=== PATIENT | male | born 1930 | race Caucasian/White ===

== ENCOUNTER 2019-02-28 12:59 | Emergency (ER) | payer MEDICARE, OTHER ==
[2019-02-28] MEDS ORDERED: ATIVAN1 MG PO (13:53)
[2019-02-28 13:58] VITALS: BP 168/80
== END 2019-02-28 14:27 | disposition home or self-care (01) ==
LOC: ED 12:59
DX: F41.9 Anxiety disorder, unspecified (principal); I10 Essential (primary) hypertension; F03.90 Unspecified dementia, unspecified severity, without behavioral disturbance, psychotic disturbance, mood disturbance, and anxiety; Z86.73 Personal history of transient ischemic attack (TIA), and cerebral infarction without residual deficits

== ENCOUNTER 2019-08-17 | Emergency (ER) | payer MEDICARE, OTHER ==
[~2019-08-17] MED LIST: ATIVAN1 MG PO
[2019-08-17 12:39] LABS: HEMATOCRIT 39.4 % (39.0-50.0); HEMOGLOBIN 12.7 g/dl (14.0-18.0); IMMATURE GRANULOCYTES 0.3 % (0.0-5.0); MEAN CELL VOLUME 88.1 fL CALC (80.0-100.0); MEAN CORPUSCULAR HGB 28.4 pG CALC (26.0-32.0); MEAN CORPUSCULAR HGB CONC 32.2 g/L CALC (32.0-36.0); NEUT# 3.85 thou/uL (1.82-7.42); RED BLOOD COUNT 4.47 mill/uL (4.70-6.10); RED CELL DISTRI WIDTH 12.5 % (11.5-15.5)
[2019-08-17 12:46] LABS: ALBUMIN 4.2 g/dL (3.2-5.0); ALKALINE PHOSPHATASE 77 u/l (38-126); ANION GAP 12 (6-22 (CALC)); BILIRUBIN, TOTAL 0.7 mg/dL (0.0-1.4); BUN 15 mg/dL (8-23); BUN/CREATININE RATIO 14 (12-20 (CALC)); CARBON DIOXIDE 30 mmol/l (22-30); CHLORIDE 101 mmol/l (95-108); CREATININE 1.1 mg/dL (0.7-1.3); GFR > 60 ML/MIN (>=60 (CALC)); GFR FOR AFR.AMER. > 60 ML/MIN (>=60 (CALC)); POTASSIUM 3.7 mmol/l (3.5-5.1); SGOT/AST 19 u/l (19-48); SODIUM 139 mmol/l (137-146); TOTAL PROTEIN 7.8 g/dL (6.3-8.2)
[2019-08-17 12:50] LABS: INTERNATIONAL NORMALIZED RATIO 1.1 RATIO (0.7-1.3); PROTHROMBIN TIME 11.5 SECONDS (9.0-12.5)
[2019-08-17] MEDS ORDERED: BACTROBAN TOP (13:26)
== END 2019-08-17 14:37 | disposition home or self-care (01) ==
DX: R23.0 Cyanosis (principal); T14.8XXA Other injury of unspecified body region, initial encounter; I10 Essential (primary) hypertension; F03.90 Unspecified dementia, unspecified severity, without behavioral disturbance, psychotic disturbance, mood disturbance, and anxiety; F41.9 Anxiety disorder, unspecified; I48.91 Unspecified atrial fibrillation; X58.XXXA Exposure to other specified factors, initial encounter; Z86.73 Personal history of transient ischemic attack (TIA), and cerebral infarction without residual deficits

== ENCOUNTER 2021-03-09 08:06 | Inpatient (IN) | payer MEDICARE, OTHER ==
[~2021-03-09] VITALS: Ht 274.3 cm; Wt 86.0 kg
[2021-03-09] VITALS (8 sets, daily range): BP systolic 111–164; BP diastolic 71–80
[~2021-03-09 08:06] MED LIST changes: +BACTROBAN TOP
--- NOTE | 2021-03-09 08:06 | NUR ---
PT TO ROOM VIA EMS
--- NOTE | 2021-03-09 08:44 | NUR ---
[facility]
[2021-03-09 09:03] LABS: HEMATOCRIT 43.5 % (39.0-50.0); HEMOGLOBIN 13.9 g/dl (14.0-18.0); IMMATURE GRANULOCYTES 0.4 % (0.0-5.0); MEAN CELL VOLUME 87.5 fL CALC (80.0-100.0); NEUT# 1.42 thou/uL (1.82-7.42); RED BLOOD COUNT 4.97 mill/uL (4.70-6.10)
[2021-03-09 09:11] LABS: INTERNATIONAL NORMALIZED RATIO 1.1 RATIO (0.7-1.3); PROTHROMBIN TIME 11.6 SECONDS (9.0-12.5)
--- NOTE | 2021-03-09 09:15 | NUR ---
ASSISTED PATIENT UP TO BSC AND THEN BACK TO BED
[2021-03-09 10:02] LABS: GFR > 60 ML/MIN (>=60 (CALC)); GFR FOR AFR.AMER. > 60 ML/MIN (>=60 (CALC))
[2021-03-09 10:21] LABS: ALBUMIN 3.6 g/dL (3.2-5.0); BILIRUBIN, TOTAL 0.8 mg/dL (0.0-1.4); BUN 13 mg/dL (8-23); BUN/CREATININE RATIO 13 (12-20 (CALC)); CHLORIDE 101 mmol/l (95-108); GFR > 60 ML/MIN (>=60 (CALC)); GFR FOR AFR.AMER. > 60 ML/MIN (>=60 (CALC)); MAGNESIUM 1.7 mg/dL (1.6-2.3); POTASSIUM 3.8 mmol/l (3.5-5.1); SODIUM 133 mmol/l (137-146); TOTAL PROTEIN 7.2 g/dL (6.3-8.2)
--- NOTE | 2021-03-09 10:21 | NUR ---
PATIENT RESTING ON STRETCHER WITH EYES CLOSED. NO DISTRESS NOTED
[2021-03-09 10:23] LABS: ALKALINE PHOSPHATASE 120 u/l (38-126); ANION GAP 14 (6-22 (CALC)); CARBON DIOXIDE 22 mmol/l (22-30); SGOT/AST 45 u/l (19-48)
[2021-03-09 10:25] LABS: C-REACTIVE PROTEIN 4.1 mg/dL (0-0.9)
[2021-03-09 12:12] LABS: URINE BILIRUBIN - DIPSTICK NEGATIVE (NEGATIVE); URINE BLOOD DIPSTICK NEGATIVE (NEGATIVE); URINE COLOR YELLOW; URINE GLUCOSE - DIPSTICK NEGATIVE (NEGATIVE); URINE KETONE 15 mg/dL (NEGATIVE); URINE LEUK ESTERASE NEGATIVE (NEGATIVE); URINE PH 6.5 (4.5-8.0); URINE PROTEIN - DIPSTICK 30 mg/dL (NEG-TRACE); URINE SPECIFIC GRAVITY 1.015
[2021-03-09 12:15] LABS: URINE MUCUS MODERATE hpf (NONE-FEW); URINE NITRITE - DIPSTICK NEGATIVE (Negative)
--- NOTE | 2021-03-09 12:30 | NUR ---
PATIENT RESTING ON STRETCHER AWARE OF PENDING ADMIT. ADMISISON ASSESSMENT COMPLETED. PT IS ALERT AND ORIENTED X3. HOWEVER HAS BRIEF EPISODES OF CONFUSION. IV PATENT X1. CARDIZEM GTT INFUSING. AFIB ON MONITOR. WILL OCNTINUE TO MONITOR CLOSELY.
[2021-03-09] MEDS ORDERED: ATENOLOL25 MG PO (14:17)
[2021-03-09] MEDS ORDERED: LISINOPRIL10 MG PO (14:17)
[2021-03-09] MEDS ORDERED: REMERON7.5 MG PO (14:18)
[2021-03-09] MEDS ORDERED: ELIQUIS5 MG PO (14:18)
[2021-03-09] MEDS ORDERED: AMLODIPINE BESYL5 MG PO (14:18)
[2021-03-09] MEDS ORDERED: LASIX 40 MG TAB40 MG (14:19)
[2021-03-09] MEDS ORDERED: DONEPEZIL HCL5 M1 PO (14:19)
--- NOTE | 2021-03-09 14:34 | NUR ---
PATENT RESTING ON STRETCHER AT THIS TIME. NO COMPLAINTS VOICED CARDIZEM INFUSING.
--- NOTE | 2021-03-09 16:00 | NUR ---
PATIENT RESITNG ON STRETCHER AT THIS TIME. RESP ARE EVEN AND UNLABORED. NO DISTRESS NOTED. CALL LIGHT IN REACH. WILL CO NTINUE TO MONITOR.
--- NOTE | 2021-03-09 17:30 | NUR ---
PATIENT SET UP FOR PM MEAL AT THIS TIME.
--- NOTE | 2021-03-09 18:00 | NUR ---
PATIENT RESINT ON STRETCHER AT THIS TIME. NO DISTRESS NOTED CALL LIGHT IN REACH. WILL CONTINIUE TO MONITORL.
[2021-03-10] VITALS (22 sets, daily range): BP systolic 100–188; BP diastolic 57–82
--- NOTE | 2021-03-10 00:10 | NUR ---
rec'd to icu6 per stretcher from er as icu hold. transferred x2 to bed. bed weight obtained. telemetry monitor shows a fib hr 126. cardizem infusing @ 10mg hr per #18 lac. oriented to room. bed alarm activated.
--- NOTE | 2021-03-10 00:43 | NUR ---
REPORT GIVEN TO MITCHELL
--- NOTE | 2021-03-10 00:59 | NUR ---
SPOKE WITH PATIENT'S EARLIER IN THIS SHIFT. UPDSATED ON PT STATUS. IS CURRENTLY AN INPT IN THIS HOSPITAL. PT HAS DEMENTIA. PER PT FREQUENTLY FALLS AT NIGHT AND CONSTANTLY GETS UP AT NIGHT. PT HAS BEEN REMINDED TO STAY IN BED FREQUENTLY. PT ASSISTED TO BSC -URNE ; NO BM. PT ATTEMPTED TO GET OOB SVERAL TIMES. PT VERBALLY REMINDED TO STAY IN BED AND PHYSICALLY ASSISTED TO POSITION OF COMFORT WHILE IN BED. WARM BLANKETS PROVIDED. PT BEING TRANSPORTED TO ICU 6 BY CHARGE NURSE. CHARGE NURSE, CLIFFORD, PREVIOUSLY NOTIFIED OF 'S REPORT THAT PT WONDERS AND FALLS AT NIGHT.
--- NOTE | 2021-03-10 02:00 | NUR ---
awake. has attempted to get oob several times. requires MUCH observation. bed alarm cont.
--- NOTE | 2021-03-10 03:45 | NUR ---
bed alarm sounding. pt on side of bed "looking for my micah." pt referring to his . instructed pt his was on the med surg floor. assisted into bed. bed alarm reactivated.
--- NOTE | 2021-03-10 05:00 | NUR ---
lab here. blood drawn.
[2021-03-10 05:44] LABS: HEMATOCRIT 42.5 % (39.0-50.0); MEAN CORPUSCULAR HGB CONC 32.9 g/dL CAL (32.0-36.0); RED CELL DISTRI WIDTH 12.9 % (11.5-15.5)
--- NOTE | 2021-03-10 05:50 | NUR ---
eyes closed. no distress. cardiac care unit nurse shows a fib.
[2021-03-10 06:01] LABS: ANION GAP 11 (6-22 (CALC)); BUN 11 mg/dL (8-23); BUN/CREATININE RATIO 13 (12-20 (CALC)); CALCULATED LDLCHOLESTEROL 34 mg/dL (62-129 (CALC)); CARBON DIOXIDE 23 mmol/l (22-30); CHLORIDE 103 mmol/l (95-108); CREATININE 0.9 mg/dL (0.7-1.3); GFR > 60 ML/MIN (>=60 (CALC)); GFR FOR AFR.AMER. > 60 ML/MIN (>=60 (CALC)); HDL CHOLESTEROL 23 mg/dL (>=40); MAGNESIUM 1.8 mg/dL (1.6-2.3); POTASSIUM 3.7 mmol/l (3.5-5.1); SODIUM 133 mmol/l (137-146); TOTAL CHOLESTEROL 70 mg/dl (0-199); TOTAL TRIGLYCERIDES 66 mg/dl (30-149); VLDL CHOLESTROL 13 mg/dl (0-38 (CALC))
--- NOTE | 2021-03-10 06:05 | NUR ---
bed alarm sounding. voided per bsc then assisted to bed.
--- NOTE | 2021-03-10 06:44 | NUR ---
NO ONLINE ACTIVIST INTERVENTION NEEDED AT THIS TIME. PT RESTING COMFORTABLY, FLAT IN BED. ON RA. VSS. NAD. ONLINE ACTIVIST TO MONITOR.
--- NOTE | 2021-03-10 07:15 | NUR ---
pt awake in bed; no apparent distress noted; pt blowning whistle for staff attention; assessment completed at this time; pt alert x1; confusion noted; denies pain; no n/v noted; resp even and unlabored; lungs clear/ faint wheeze anterior; skin color wnl; loans consultant cough noted; hr irreg; strong pulses; no edema noted; afib on monitor; abd soft with bs present; no bm noted per abstract writer; no urine to inspect at this time; #18 patent to lac with cardizem gtt infusing at 10mg/hr; no redness or edema noted at site; abrasion noted to left knee; plan of care/ meds explained; bed alarm set for pt safety; call light explained and within reach; will continue to monitor
--- NOTE | 2021-03-10 08:00 | NUR ---
repositioned in bed for breakfast; call light within reach; will continue to monitor
--- NOTE | 2021-03-10 08:50 | NUR ---
#20 started to rfa x1 attempt; pt assisted to bsc then recliner; call light within reach; increased visual observation for pt safety; afib on monitor; will continue to monitor
--- NOTE | 2021-03-10 09:30 | NUR ---
Dr Yepez present at bedside to assess pt and discuss plan of care
--- NOTE | 2021-03-10 10:10 | NUR ---
assisted to bsc for loose brwon bm; stool mixed with urine; back to recliner; will continue to monitor
--- NOTE | 2021-03-10 12:00 | NUR ---
awake and more confused; pt assisted to bsc; no urine or stool noted; iv intact and patent; cardizem gtt titrated to 8mg/hr; afib on monitor; call placed to spouse at 290; pt able to speak to spouse; will continue to monitor
--- NOTE | 2021-03-10 13:50 | NUR ---
pt out of recliner; attempting to use bsc "to go upstairs" reoriented; back to recliner; will continue to monitor
--- NOTE | 2021-03-10 14:20 | NUR ---
pt very confused; noted out of recliner per self; pt with very unsteady weak gait; assisted back to bed for safety reasons; bed alarm set; call light within reach; will continue to monitor
--- NOTE | 2021-03-10 16:24 | NUR ---
resting in bed with eyes closed; no apparent distress noted; afib on monitor; bed alarm for pt safety; call light within reach; will continue to monitor
--- NOTE | 2021-03-10 18:00 | NUR ---
awake in bed; assisted to bsc then recliner; no apparent distress noted; afib on monitor; ra; iv patent with cardizem gtt infusing at 8mg/hr; call light within reach
--- NOTE | 2021-03-10 18:14 | NUR ---
pt moved to ICU bed 8
--- NOTE | 2021-03-10 19:30 | NUR ---
awake. sitting in bedside chair. nad. remains confused. ekg monitor shows a fib hr 114. #20 rfa cardizem infusing @ 8mghr. #18 lac saline lock. assisted to bsc then to bed. fall & air/contact precautions & bed alarm conts. instructed pt was time to sleep.
--- NOTE | 2021-03-10 19:35 | NUR ---
appears to be sleeping.
--- NOTE | 2021-03-10 21:05 | NUR ---
awake. attempting to get oob. instructed to stay in bed & pt complied. bedtime meds & soda given. instructed pt was time to sleep.
--- NOTE | 2021-03-10 21:15 | NUR ---
appears to be sleeping.
--- NOTE | 2021-03-10 22:30 | NUR ---
attempting to get oob by self. assisted to bsc then to bed. jatinder well. update given to pt about who is on medsurg floor. bed alarm reactivated.
--- NOTE | 2021-03-10 22:35 | NUR ---
pt appears to be sleeping.
[2021-03-11] VITALS (21 sets, daily range): BP systolic 108–151; BP diastolic 63–88
--- NOTE | 2021-03-11 00:05 | NUR ---
awake. up to bsc then back to bed. jatinder well.
--- NOTE | 2021-03-11 02:00 | NUR ---
resting quietly. resps even & unlabored. no apparent distress.
--- NOTE | 2021-03-11 04:30 | NUR ---
lab here. blood drawn.
--- NOTE | 2021-03-11 05:22 | NUR ---
xray here. pcxr obtained.
[2021-03-11 05:44] LABS: HEMATOCRIT 41.8 % (39.0-50.0); HEMOGLOBIN 13.7 g/dl (14.0-18.0); IMMATURE GRANULOCYTES 0.4 % (0.0-5.0); MEAN CELL VOLUME 84.3 fL CALC (80.0-100.0); MEAN CORPUSCULAR HGB 27.6 pG CALC (26.0-32.0); MEAN CORPUSCULAR HGB CONC 32.8 g/dL CAL (32.0-36.0); NEUT# 1.14 thou/uL (1.82-7.42); RED BLOOD COUNT 4.96 mill/uL (4.70-6.10); RED CELL DISTRI WIDTH 12.9 % (11.5-15.5)
[2021-03-11 05:59] LABS: ANION GAP 13 (6-22 (CALC)); BUN 13 mg/dL (8-23); BUN/CREATININE RATIO 16 (12-20 (CALC)); C-REACTIVE PROTEIN 5.2 mg/dL (0-0.9); CARBON DIOXIDE 21 mmol/l (22-30); CHLORIDE 104 mmol/l (95-108); CREATININE 0.8 mg/dL (0.7-1.3); GFR > 60 ML/MIN (>=60 (CALC)); GFR FOR AFR.AMER. > 60 ML/MIN (>=60 (CALC)); POTASSIUM 3.2 mmol/l (3.5-5.1); SODIUM 134 mmol/l (137-146)
--- NOTE | 2021-03-11 06:44 | NUR ---
PT IN ON 4 LITER NASAL CANNULA WITH SATS OF 95%.
--- NOTE | 2021-03-11 07:00 | NUR ---
BED ALARM SOUNDING. UPON ENTERING ROOM, PT REQUESTING TO USE BSC. A&O; PT ABLE TO STATE NAME, LOCATION AND YEAR. 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 PT ASSISTED TO BSC, MODERA LOOSE BM, PT VOIDED 100 CC OF URINE IN URINAL. PT ASSISSTED BACK INTO BED. CLEAR/DIMINISHED BREATH SOUNDS UPON AUSCULTATION. AFIB ON SPRAY MIXER WITH A RATE OF 115 BPM; CARDIZEM INFUSING @5MG/ML TO #20G RFA, REMAINS HEALTHY AND PATENT. EMS SITE TO LAC REMAINS. ACTIVE BOWEL SOUNDS X4 QUADRANTS. PT REORIENTED TO ROOM, AND CALL LIGHT; CALL LIGHT LEFT WITHIN REACH . BED ALARM PLACED FOR SAFETY. DISCUSSED POC, REINFORCEMENT NEEDED. ASSESSMENT COMPLETED.
--- NOTE | 2021-03-11 08:09 | NUR ---
PT IS NOW ON RA WITH SATS OF 93%.
--- NOTE | 2021-03-11 10:05 | NUR ---
PT SLEEPING IN RECLINER, AFIB ON MONITOR 96 BPM, CARDIZEM CONTINUES INFUSING @5MG/HR. HR WITH EXERTION 120'S. NO OTHER NEEDS AT THIS TIME. REORIENTED PT TO ROOM. BED ALARM IN PLACE FOR SAFETY. CALL LIGHT WITHIN REACH.
--- NOTE | 2021-03-11 12:15 | NUR ---
PT SLEEPING IN BED. NO DISTRESS NOTED. CARDIZEM GTT CONTINUES AT 5MG/HR, AFIB 110 ON OFFICE CLERK ROUTINE. NO OTHER NEEDS AT THIS TIME. CALL LIGHT WITHIN REACH. BED ALARM IN PLACE FOR SAFETY.
--- NOTE | 2021-03-11 14:15 | NUR ---
PT SLEEPING IN BED. NO DISTRESS. CURRENTLY AFIB WITH A RATE OF 112, CARDIZEM GTT 5MG/HR INFUSING AT THIS TIME. NO OTHER NEEDS IN THIS TIME. CALL LIGHT WITHIN REACH. BED ALARM IN PLACE FOR SAFETY.
--- NOTE | 2021-03-11 16:15 | NUR ---
PT LAYING IN BED. NO DISTRESS. REMAINS ON ROOM AIR 93%. NO OTHER NEEDS AT THIS TIME, CARDIZEM REMAINS UNCHANGED. CALL LIGHT WITHIN REACH. BED ALARM IN PLACE FOR SAFETY.
--- NOTE | 2021-03-11 17:37 | NUR ---
PT SLEEPING IN BED. NO DISTRESS NOTED. AFIB ON MONITOR WITH HR 102. CARDIZEM INFUSING AT 5MG/HR. CALL LIGHT WITHIN REACH. BED ALARM IN PLACE FOR SAFETY.
--- NOTE | 2021-03-11 18:13 | NUR ---
PT SLEEPING IN BED, AWAKENED WHEN THIS DOPING SUPERVISOR ENTERED ROOM. PT DENIES ANY COMPLAINTS AT THIS TIME, REORIENTED PT TO ROOM. HR 117. CARDIZEM REMAINS. NO OTHER NEEDS AT THIS TIME. CALL LIGHT WITHIN REACH. BED LARM IN PLACE FOR SAFETY.
--- NOTE | 2021-03-11 20:00 | NUR ---
has been asleep but is now awake. remains confused. oriented to name & place. engine monitor shows a fib hr 108. ivf infusing per #20 rfa. assisted to bsc then back to bed. jatinder well. fall & air/contact precautions cont. bed alarm on. requires freq observtion.
--- NOTE | 2021-03-11 22:00 | NUR ---
eyes closed. no distress. traffic monitor specialist shows a fib hr 90
--- NOTE | 2021-03-11 23:30 | NUR ---
awake. up to bsc then back to bed.
[2021-03-12] VITALS (19 sets, daily range): BP systolic 107–160; BP diastolic 60–95
--- NOTE | 2021-03-12 02:00 | NUR ---
resting quietly. resps even & unlabored. no apparent distress.
--- NOTE | 2021-03-12 04:00 | NUR ---
eyes closed. no distress.
--- NOTE | 2021-03-12 05:30 | NUR ---
up to bsc then back to bed. jatinder well.
[2021-03-12 06:29] LABS: ANION GAP 15 (6-22 (CALC)); BUN 14 mg/dL (8-23); BUN/CREATININE RATIO 19 (12-20 (CALC)); C-REACTIVE PROTEIN 5.7 mg/dL (0-0.9); CARBON DIOXIDE 20 mmol/l (22-30); CHLORIDE 104 mmol/l (95-108); CREATININE 0.7 mg/dL (0.7-1.3); GFR > 60 ML/MIN (>=60 (CALC)); GFR FOR AFR.AMER. > 60 ML/MIN (>=60 (CALC)); MAGNESIUM 1.9 mg/dL (1.6-2.3); POTASSIUM 3.8 mmol/l (3.5-5.1); SODIUM 135 mmol/l (137-146)
[2021-03-12 06:36] LABS: HEMATOCRIT 45.9 % (39.0-50.0); HEMOGLOBIN 15.3 g/dl (14.0-18.0); IMMATURE GRANULOCYTES 0.5 % (0.0-5.0); MEAN CELL VOLUME 83.8 fL CALC (80.0-100.0); MEAN CORPUSCULAR HGB 27.9 pG CALC (26.0-32.0); MEAN CORPUSCULAR HGB CONC 33.3 g/dL CAL (32.0-36.0); NEUT# 1.22 thou/uL (1.82-7.42); RED BLOOD COUNT 5.48 mill/uL (4.70-6.10); RED CELL DISTRI WIDTH 12.7 % (11.5-15.5)
--- NOTE | 2021-03-12 07:10 | NUR ---
REPORT RECEIVED FROM KURTIS OROPEZA
--- NOTE | 2021-03-12 08:15 | NUR ---
PT RESTING IN SEMI FOWLERS POSITION,A&O TO SELF WITH FORGETFULNESS NOTED;HX DEMENTIA;VS OBTAINED AND ASSESSMENT COMPLETED;PT DENIES ANY CURRENT PAIN OR DISCOMFORTS,PAIN SCALE AND REPORTING EDUCATED;RESPIRATIONS EVEN AND UNLABORED ON RA,CLEAR LUNG SOUNDS;ABDOMEN SOFT ON PALPATION AND ACTIVE IN ALL 4 QUADRANTS;WEAK PEDAL PULSES;SKIN INTACT;CARDIAC MONITORING IN PLACE;#20G TO RFA INFUSING CARDIZEM @ 5CC/HR;PT REMAINS IN AIR/CONTACT PRECAUTIONS DUE TO COVID19 DX;PT DENIES ANY ADDITIONAL NEEDS AND IS ENCOURAGED TO CALL FOR ASSISTANCE IF NEEDED;FALL PRECAUTIONS IN PLACE WITH BED IN TH LOWEST POSITION AND CALL LIGHT IN REACH;WILL CONTINUE TO MONITOR
--- NOTE | 2021-03-12 08:40 | NUR ---
AT BEDSIDE DISCUSSING POC.
--- NOTE | 2021-03-12 09:30 | NUR ---
PT MEDICATED WITH PRN ROBITSSIN PER REQUEST,WILL CONTINUE TO MONITOR
--- NOTE | 2021-03-12 10:00 | NUR ---
PT OOB RESTING IN RECLINER;RESPIRATIONS EVEN AND UNLABORED ON RA;PT DENIES ANY CURRENT PAIN OR DISCOMFORTS;CARDIAC MONITORING IN PLACE;#22G TO RFA REMAINS PATENT WITH CARDIZEM INFUSING @ 5CC/HR;PT ENCOURAGED TO CALL FOR ASSISTANCE IF NEEDED;CALL LIGHT IN REACH;WILL CONTINUE TO MONITOR
--- NOTE | 2021-03-12 11:40 | NUR ---
PT RESTING IN RECLINER;RESPIRATIONS REMAIN EVEN AND UNLABORED ON RA;PT DENIES ANY CURRENT PAIN OR NEEDS;CARDIAC MONITORING IN PLACE;PT VOIDED 200CC OF CLEAR/YELLOW URINE;IV SITE PATENT INFUSING WITH EASE;ENCOURAGED TO CALL FOR ASSISTANCE IF NEEDED;CALL LIGHT IN REACH;WILL CONTINUE TO MONITOR
--- NOTE | 2021-03-12 13:50 | NUR ---
PT OOB RESTING IN RECLINER;RESPIRATIONS EVEN AND UNLABORED ON RA;PT DENIES ANY CURRENT PAIN OR DISCOMFORTS;CARDIAC MONITORING IN PLACE;IV SITE PATENT TO RFA INFUSING CARDIZEM PER ORDER;NEW #20G TO STARTED BY SHAHNAZ MUNOZ FOR ABX ADMINISTRATION;PT DENIES ANY ADDITIONAL NEEDS AND IS ENCOURAGED TO CALL FOR ASSISTANCE IF NEEDED;CALL LIGHT IN REACH;WILL CONTINUE TO MONITOR
--- NOTE | 2021-03-12 16:10 | NUR ---
PT APPEARS TO BE SLEEPING IN SEMI FOWLERS POSITION;RESPIRATIONS EVEN AND UNLABORED ON RA;NO S/S OF DISTRESS NOTED;CARDIAC MONITORING IN PLACE;IV SITE X2 PATENT;ALL SAFETY PRECAUTIONS REMAIN IN PLACE WITH BED IN THE LOWEST POSITION AND BED ALARM ON FOR SAFETY;CALL LIGHT IN REACH;WILL CONTINUE TO MONITOR
--- NOTE | 2021-03-12 18:00 | NUR ---
PT RESTING IN SEMI FOWLERS POSITION;RESPIRATIONS EVEN AND UNLABORED ON RA;PT DENIES ANY CURRENT PAIN OR NEEDS;CARDIAC MONITORING IN PLACE;IV SITE TO RFA AND LH REMAIN PATENT;CARDIZEM DRIP INFUSING PER ORDER;PT ENCOURAGED TO CALL FOR ASSISTANCE IF NEEDED;FALL PRECAUTIONS REMAIN IN PLACE WITH BED ALARM ON FOR SAFETY;CALL LIGHT IN REACH;WILL CONTINUE TO MONITOR
--- NOTE | 2021-03-12 19:05 | NUR ---
REPORT GIVEN BY ASHLEY. PATIENT IS IN BED WATCHING TV. CONFUSED AND CALLING OUT TO STAFF EVERY FEW MINS FOR ASSISTANCE. FALL AND SAFTEY PRECAUTIONS IN PLACE. RESP EVEN AND UNLABORED, NON-PRODUCTIVE COUGH PRESENT ON ROOM AIR. A-FIB/A-FIB RVR ON TELE. IV INFUSING CARDIZEM. 2 PERSON ASSIT TO BSC AND USES URINAL IN BED. BOTH IV'S SALINE LOCKED. PATIENT INFORMED TO USE THE CALL LIGHT WHEN NEEDING ASSISTANCE BUT CONTIUNE TO YELL AND WAVE AT STAFF FOR HELP.
--- NOTE | 2021-03-12 20:54 | NUR ---
TITRATED LEVOPHED FROM 9 MCG TO 7 MCG FOR BP SBP OF 135
--- NOTE | 2021-03-12 22:44 | NUR ---
PATIENT TRYING TO GET OUT OF BED
[2021-03-13] VITALS (16 sets, daily range): BP systolic 103–152; BP diastolic 64–101
--- NOTE | 2021-03-13 01:51 | NUR ---
PATIENT RESTING WITH EYES CLOSED. RESP EVEN AND UNLABORED. NO S/S OF DISTRESS NOTED. FALL AND SAFTEY PRECAUTIONS IN PLACE
[2021-03-13 05:37] LABS: HEMATOCRIT 46.3 % (39.0-50.0); HEMOGLOBIN 15.1 g/dl (14.0-18.0); IMMATURE GRANULOCYTES 0.2 % (0.0-5.0); MEAN CELL VOLUME 84.6 fL CALC (80.0-100.0); MEAN CORPUSCULAR HGB 27.6 pG CALC (26.0-32.0); MEAN CORPUSCULAR HGB CONC 32.6 g/dL CAL (32.0-36.0); NEUT# 5.56 thou/uL (1.82-7.42); RED BLOOD COUNT 5.47 mill/uL (4.70-6.10); RED CELL DISTRI WIDTH 12.9 % (11.5-15.5)
[2021-03-13 05:52] LABS: ANION GAP 15 (6-22 (CALC)); BUN 23 mg/dL (8-23); BUN/CREATININE RATIO 26 (12-20 (CALC)); CARBON DIOXIDE 21 mmol/l (22-30); CHLORIDE 103 mmol/l (95-108); CREATININE 0.9 mg/dL (0.7-1.3); GFR > 60 ML/MIN (>=60 (CALC)); GFR FOR AFR.AMER. > 60 ML/MIN (>=60 (CALC)); POTASSIUM 4.4 mmol/l (3.5-5.1); SODIUM 135 mmol/l (137-146)
--- NOTE | 2021-03-13 06:45 | NUR ---
REPORT RECEIVED FROM ANTENNA SPECIALIST RN. CARE ASSUMED.
--- NOTE | 2021-03-13 08:00 | NUR ---
PATIENT RESTING IN BED AWAKE. PATIENT IS ALERT AND ORIENTED TO SELF. SHIFT ASSESSMENT COMPLETED AT THIS TIME. IV PATENT X2. CARDIZEM DRIP TITRATED OFF AT THIS TIME. PATIENT MEDICATED WITH AM MEDS PER AUG. CALL LIGHT IN REACH. BED ALARM IN PLACE FOR PATIENT SAFETY. WILL CONTINUE TO MONITOR.
--- NOTE | 2021-03-13 09:00 | NUR ---
DR NOGUERA AT BEDSIDE AT THIS TIME. PLAN OF CARE DISCUSED NEW ORDERS RECEIVED.
--- NOTE | 2021-03-13 09:30 | NUR ---
PATIENT ASSISTED UP TO BSC AT THIS TIME AND THEN ASSISTED BACK TO BED.
--- NOTE | 2021-03-13 11:06 | NUR ---
PATIENT MAKING MULTIPLE ATTEMPTS TO GET OUT OF BED UNSAFE. REORIENTATION UNSUCCESSFUL. BED ALARM IN PLACE FOR PATIENT SAFETY
--- NOTE | 2021-03-13 11:30 | NUR ---
PATIENT SET UP IN BED AT THIS TIME FOR NOON MEAL
--- NOTE | 2021-03-13 12:30 | NUR ---
PATIENT ASSISTED UP TO BSC AT THIS TIME. PATIENT TOLERATED TRANSFER WELL. PATIENT ASSISTED BACK TO BED,
--- NOTE | 2021-03-13 13:20 | NUR ---
PHONED MED SURG FOR TRANSFER ALL INFORMATION GIVEN. AWAITING BED ASSIGNEMENT
[2021-03-13] MEDS ORDERED: LOPRESSOR25 MG PO (13:52)
--- NOTE | 2021-03-13 13:59 | NUR ---
TRANSFER TO [facility] / [facility] WILLBE HELD DUE TO PATIENT NOW BEING DISCHARGED TO REHAB
--- NOTE | 2021-03-13 15:42 | NUR ---
PATIENT RESTING IN BED AT THIS TIME. RESP ARE EVEN AND UNLABORED. NO DISTRESS NOTED. CALL LIGHT IN [facility]. WILL CONTINUE TO MONITOR.
--- NOTE | 2021-03-13 17:06 | NUR ---
REPORT CALLED TO PORTIA AT [facility] [phone]
--- NOTE | 2021-03-13 18:09 | NUR ---
Discharge instructions given. Patient verbalizes understanding of same. Discharged in stable condition via Wheelchair to *Other with *Other. All belongings sent with pt. PT TRANSPORTED TO [facility] VIA ACCOMPANIED BY GEORGE ELIZABETH STAFF MEMBER.ALL BELONGINGS LEFT WITH PT AND D/C INSTRUCTIONS SENT WITH STAFF MEMBER.
== END 2021-03-13 18:09 | DRG 177 ==
LOC: ED 08:06 → ED-I 11:36 → ED 12:18 → ED-I 12:19 → ICU 20:54
PROVIDERS: Family Medicine; Nurse Practitioner; ADMIT Hospitalist; ATTEND Internal Medicine
DX: U07.1 COVID-19 (principal); J12.82 Pneumonia due to coronavirus disease 2019; I10 Essential (primary) hypertension; I48.91 Unspecified atrial fibrillation; F03.90 Unspecified dementia, unspecified severity, without behavioral disturbance, psychotic disturbance, mood disturbance, and anxiety; F41.9 Anxiety disorder, unspecified; Z86.73 Personal history of transient ischemic attack (TIA), and cerebral infarction without residual deficits; Z79.01 Long term (current) use of anticoagulants
CPT/HCPCS: Q9967